=== PATIENT | male | born 1980 | race Caucasian/White ===

== ENCOUNTER 2024-03-30 09:21 | Day surgery (SDC) | payer BC, SELFPAY ==
--- NOTE | 2024-03-13 11:53 | HPS.HSE ---
Family Physician
-
Family Physician: NOT KNOW UNKNOWN - PT DOES
Chief Complaint
-
Paroxysmal atrial fibrillation.
History of Present Illness
The patient is a 43 year old male presenting today for paroxysmal atrial fibrillation. He does have a history of typical atrial flutter with associated palpitations for which he underwent an ablation in August 2023. Unfortunately, he was
discovered to have atrial fibrillation on an December 2023 EKG. He does note shortness of breath, fatigue, and palpitations, different than his previous palpitations, secondary to his atrial fibrillation. He is on current pharmacological therapy
with Diltiazem. He is complaint with Eliquis for oral anticoagulation. Although his CHADS-VASc is 0, he is aware he must continue Eliquis for 3 months post atrial flutter ablation. He is interested in pursuing pulmonary vein isolation at this time
for further arrhythmia management. He denies any current complaints today such as chest pain, shortness of breath at rest, nausea, vomiting, diarrhea, lightheadedness, dizziness, cough, sore throat, or fever.
Medical History
Past Medical History
Past Medical History: Reports Other
Additional Past Medical History:
1. Paroxysmal atrial fibrillation, pharmacological therapy with Diltiazem and oral anticoagulation with Eliquis.
2. Typical atrial flutter, status post KRUNAL-guided cardioversion x2, 06/2023, and ablation 08/2023.
3. Chronic dyspnea on exertion, multifactorial.
4. Left sided pneumothorax, 1995, status post thoracentesis.
5. Left foot infection, 06/2023, status post debridement and IV antibiotics.
6. Anxiety.
Past Surgical History: Reports Other
Additional Past Surgical History:
1. Left foot debridement.
2. Deviated septum repair.
3. Vasectomy.
4. Thoracentesis.
Social History
Tobacco: Non-smoker
Alcohol: Other (He reports social alcohol use on the weekends. )
Personal:
Living: With Family (He lives in a 2 story home with a basement with his and 3 children. )
Family History
Family History: Not pertinent
Allergies / Home Medications
Allergy/Medication List:
Home medications:
1. Diltiazem HCl 360 mg p.o. daily.
2. Eliquis 5 mg p.o. twice a day.
3. Fish oil 2,000 mg p.o. daily.
4. Multivitamin 1 tablet p.o. daily.
5. Lorazepam 1 mg p.o. daily as needed.
6. Cholecalciferol 25 mcg p.o. daily.
Allergies: Compazine.
Review of Systems
-
A 12 point ROS was completed and negative except as noted: Yes
Physical Exam
Vital Signs
Blood pressure 143/71. Heart rate 84. Respirations 18. Pulse ox 99% on room air.
Height 6 feet, 4 inches. Weight 94.4 kg. BMI 25.3.
Physical Exam
General: Well Developed, Well Nourished and No Apparent Distress
HEENT: NormoCephalic, Moist mucous membranes, Atraumatic and PERRLA
Respiratory: Clear
Cardiac: Irregular Rhythm
GI: Soft, Non Tender and Non Distended
Musculoskeletal: Normal Gait & Station
Skin: Warm and Dry
Neuro: AO x 3 and Nonfocal/grossly intact
Laboratory Results
-
DIAGNOSTIC STUDIES as of 03/13/2024: White blood cell count 7.1. Hemoglobin 14.9. Platelet count 365,000. PT 13.0. INR 1.00. Sodium 136. Potassium 4.2. BUN 14. Creatinine 0.9. Glucose 101. Calcium 9.9. Magnesium 2.3. AST 26. ALT 27. Albumin 4.7.
Blood type A positive.
EKG 03/13/2024: Atrial fibrillation with rapid ventricular response with premature ventricular or aberrantly conducted complexes.
Chest CT 03/13/2024: Short segment common vestibule for the left superior and inferior pulmonary veins, fairly commonly seen and considered normal variant. No evidence for left atrial thrombus.
Impression/Plan
-
IMPRESSION/PLAN:
1. Paroxysmal atrial fibrillation: The patient is in need of pulmonary vein isolation with Dr. Juan Agosto on 03/30/2024. The benefits and risks of the procedure have been explained to the patient. The patient understands these risks and wishes to
proceed. He will hold his Eliquis the night prior and morning of his procedure. He has been instructed to hold all his medications the morning of his pulmonary vein isolation.
[2024-03-13 13:02] VITALS: BMI 25.3
[2024-03-13 13:21] LABS: % Basophils 1.1 % (0-2); % Eosinophils 4.3 % (0-6); % Immature Granulocytes 0.1 % (0-0.5); % Lymphocytes 28.8 % (20.5-51.1); % Monocytes 7.2 % (1.7-9.3); % Neutrophils 58.5 % (42.2-75.2); Absolute Basophils 0.1 10^3/uL (0-0.2); Absolute Eosinophils 0.3 10^3/uL (0-0.7); Absolute Monocytes 0.5 10^3/uL (0.1-0.6); Absolute Neutrophils 4.1 10^3/uL (1.4-6.5); Hematocrit 44.2 % (39.0-52.0); Hemoglobin 14.9 g/dL (13.0-18.0); Mean Corp Hgb Conc. 33.7 g/dL (33.0-37.0); Mean Corpuscular Volume 92.1 fL (80.0-94.0); Mean Platelet Volume 9.9 fL (7.4-10.4); Nucleated Red Blood Cells % 0 % (-); Platelet Count 365 10^3/uL (130-400); Red Cell Dist. Width 13.2 % (11.5-14.5); White Blood Cell Count 7.1 10^3/uL (4.8-10.8)
[2024-03-13 13:31] LABS: ALT (SGPT) 27 U/L (0-50); AST (SGOT) 26 U/L (17-59); Albumin 4.7 g/dl (3.5-5.0); Alkaline Phosphatase 69 U/L (38-126); Blood Urea Nitrogen 14 mg/dl (9-20); Calcium 9.9 mg/dl (8.4-10.2); Carbon Dioxide 30 mmol/L (22-30); Chloride 101 mmol/L (98-107); Estimated Creatinine Clearance > 125 ml/min; Glucose 101 mg/dl (70-99); Magnesium 2.3 mg/dl (1.6-2.3); Potassium 4.2 mmol/L (3.5-5.1); Sodium 136 mmol/L (135-145); Total Bilirubin 0.7 mg/dl (0.2-1.3); Total Protein 7.7 g/dl (6.3-8.2); eGFR > 60.00
[2024-03-30] VITALS (9 sets, daily range): BP systolic 107–136; BP diastolic 69–100; BMI 25.0
[2024-03-30 12:58] LABS: ACT-LR - POC 234 Seconds (116-155)
[2024-03-30 13:14] LABS: ACT-LR - POC 289 Seconds (116-155)
[2024-03-30 13:31] LABS: ACT-LR - POC 340 Seconds (116-155)
[2024-03-30 14:08] LABS: ACT-LR - POC 337 Seconds (116-155)
[2024-03-30 14:25] LABS: ACT-LR - POC > 397 Seconds (116-155)
[2024-03-30 14:29] LABS: ACT-LR - POC 300 Seconds (116-155)
[2024-03-30 14:49] LABS: ACT-LR - POC 213 Seconds (116-155)
--- NOTE | 2024-03-30 15:55 | ITS.CL.ABL ---
Housekeeping/Laundry - Ablation
Ablation
Procedure Report:
Primary Sample Washer: Naeem Shelton MD
Procedure Date: 03/30/2024
Patient History:
Patient is a pleasant 43-year-old male with a past medical history significant for paroxysmal atrial flutter status post CTI RFA 08/2023 and newly diagnosed paroxysmal early persistent atrial fibrillation.
See H&P for complete details.
Indication:
Symptomatic paroxysmal, early persistent atrial fibrillation
Arrhythmia Specific History:
Prior Medical Therapies for Rate and Rhythm Control:
X Beta-mami
X Calcium channel-mami
[ ] Amiodarone
[ ] Dronederone
[ ] Sotalol
[ ] Flecainide
[ ] Dofetilide
[ ] Options limited by bradycardia
[ ] Options limited by comorbid renal disease
Prior Procedural Therapies for AF/AFL:
[ ] Cardioversion
[ ] Pulmonary Vein Isolation
[ ] Posterior Wall Isolation
[ ] Additional lines (Specify)
[ ] Surgical Don-MAZE or PVI (Specify)
Procedure Performed:
X AF ablation procedure (83942) -- includes LA/CS pacing, trans-septal, 3D mapping, + ICE
[ ] +IV drug (42276)
[ ] +Other Arrhythmia (40729)
[ ] +Other AF Line/ablation (43451)
Risks and expected recovery has been explained in detail. Alternative options have been explored, and in a shared-decision making fashion we have decided that this was the most appropriate procedure.
Method
NPO status confirmed. Grounding pad applied. Defibrillator pads applied. Continuous surface ECG, pulse oximetry, and blood pressure were monitored. Procedure was performed under general anesthesia, with anesthesia services.
Both groins were clipped, prepped with Chloraprep, and draped in sterile fashion. Time out was called. Local anesthesia administered with bupivacaine. The right and left femoral veins were accessed for catheter placement, using ultrasound guidance,
micro-puncture needle/wire, and modified seldinger technique. 3 sheaths were placed. The following catheters were used:
[ ] Tacticath SE (D/F Curve) ablation catheter
X Viewflex 9Fr ICE catheter
X Inquiry decapolar 6Fr diagnostic catheter
[ ] CRD Hex 6Fr
[ ] Arctic Front Advance Cryoballoon ([ ]28mm[ ]23mm)
[ ] Achieve Advance mapping catheter ([ ]15mm[ ]20mm)
X FlexCath Contour 10 Fr with PulseSelect PFA Catheter
X Advisor HD Grid Mapping Catheter, SE
[ ] Acuson AcuNav 8 Fr ICE catheter
[ ]Other: [ ]
Intracardiac ultrasound (ICE) was carefully advanced into the right atrium to guide sheath placement over a J-wire, catheter placement, guide trans-septal puncture, identify potential complications, identify anatomic structures and ensure proper
contact between ablation catheter and tissue.
Heparin was given prior to trans-septal puncture. Heparin was given to achieve and maintain a target ACT of 300-400 seconds throughout the procedure.
Trans-septal access was performed under ICE guidance. The trans-septal puncture was performed with a SafeSept wire through a Brockenbrough needle assembly through the SL1 sheath. The wire was visualized as it entered the LSPV and system advanced
under ICE guidance and fluoroscopy into the LA. The Brockenbrough needle assembly, SafeSept wire and sheath dilator were removed under negative pressure. LA pressure was measured and recorded. A protrack wire was then advanced into the LA, the SL1
was removed over the wire and the steerable sheath was advanced into the LA.
ICE and 3D mapping was performed to identify relevant cardiac structures. A careful 3D map was created to assess for regions of low-voltage and abnormal electrogram signals using HD grid mapping catheter and PulseSelect catheter. Additional mapping
was performed as outlined below.
Prior to ablation, glycopyrrolate was provided. PulseSelect catheter was advanced over J-wire to the ostium of each vein. Pulmonary vein isolation was performed with ostial and antral lesions in a circumferential manner. Contact was visualized via
EAM, ICE, fluoroscopy, and EGM signals. Navigation within the LA was visualized carefully with fluoroscopy and ICE due to the smaller anatomy. Following completion of ablation lesions, sinus rhythm was restored with a 200J synchronized DCCV and a
post-ablation voltage/activation map was performed in sinus rhythm. Entrance and exit block were confirmed for each vein. No arrhythmia was induced at completion of study.
Catheter and sheath were removed from the left atrium and post-ablation intracardiac echo evaluation was consistent with pre-ablation with no changes and no pericardial effusion and there is no left atrial thrombus or left ventricle thrombus seen.
Electrophysiology study was performed. Hemostasis was obtained with Vascade for each sheath and with manual pressure. Protamine was used for reversal.
Estimated Blood Loss
5-10 mL
Complications
None
Fluoroscopy: 11 minutes; 35.48 mGy; DAP 4.13
Baseline Intervals:
Rhythm: AF
QRS: 81 ms
Post-Procedure Intervals:
UT: 148 ms
QRS: 79 ms
QT: 398 ms
QTc: 424 ms
A-A: 883 ms
R-R: 883 ms
AVWB: 350 ms
AVNERP: 600/290 ms
AERP: 600/210 ms
Recommendations
- Bedrest with straight-leg precautions as ordered
- Anticipate same day discharge if patient meeting clinical metrics
- Resume home medications as indicated
- Ok to resume anticoagulation tonight if patient and groin sites stable
- PPI daily for 30 days
- Plan for follow-up in office in 4-6 weeks
Juan Agosto DO
Clinical Cardiac Manager [facility]
cc: Naeem Shelton MD; Mckinley Gutierrez DO
[2024-03-30] MEDS: ANESTHETIC LOZENGE 1 LOZENGE PO (16:12)
--- NOTE | 2024-03-30 16:45 | W.PN.UPDATE ---
Update Note
Progress Note Update
Pt seen post PVI. Bilat groin sites with vascade closure, no ht/bleeding, non tender. Post EKG NSR 80s, no acute changes. Resume eliquis tonight, continue other meds as before. 30 day protonix post procedure. Followup at [facility] as scheduled. Home today
if groin sites/tele remain stable.
== END 2024-03-30 18:15 | disposition home or self-care (01) ==
LOC: CATH 09:21
PROVIDERS: ATTENDING PHYSICIAN Internal Medicine Cardiovascular Disease; FAMILY PHYSICIAN Family Medicine
DX: I48.19 Other persistent atrial fibrillation (principal); I48.3 Typical atrial flutter; R06.09 Other forms of dyspnea; Z87.09 Personal history of other diseases of the respiratory system; I08.1 Rheumatic disorders of both mitral and tricuspid valves; I08.8 Other rheumatic multiple valve diseases; F41.9 Anxiety disorder, unspecified; Z79.01 Long term (current) use of anticoagulants; Z98.890 Other specified postprocedural states
CPT/HCPCS: 93312; 93320; 93325; C1732; C1894; C1769; C1893; C1766; 36415; 75572; 76937; 80053; 83735; 85025; 85347; 85610; 86850; 86900; 86901; 93005; 93656; C1760; Q9967

== ENCOUNTER → 2024-05-17 08:23 | Outpatient (REF) | payer BC, SELFPAY | LOC: RCS 08:23 | PROVIDERS: ATTENDING PHYSICIAN Internal Medicine Cardiovascular Disease; FAMILY PHYSICIAN Family Medicine | DX: I48.0 Paroxysmal atrial fibrillation (principal); R06.02 Shortness of breath | CPT/HCPCS: 93306 ==